=== PATIENT | female | born 1940 | race Caucasian/White ===

== ENCOUNTER 2021-06-07 11:05 | Emergency (ER) | payer MEDICARE ==
[2021-06-07 12:01] LABS: BASOPHIL 0.7 % (0-2); EOSINOPHIL 0 % (0-7); HCT 38.9 % (37.0-47.0); HGB 12.5 g/dl (12.5-16.0); LYMPHOCYTE 19.1 % (15-48); MCH 27.1 pg (25.0-31.0); MCHC 32.1 g/dL (32.0-36.0); MCV 84.2 fL (78.0-100.0); MONOCYTE 12.5 % (0-12); NEUTROPHIL 66.2 % (41-80); NRBC 0; PLT 38 K/uL (150-400); RBC 4.62 M/uL (4.20-5.40); RDW 14.6 % (11.5-14.0)
[2021-06-07 12:04] LABS: WBC 1.4 K/uL (4.0-10.5)
[2021-06-07 12:12] LABS: BILIRUBIN - TOTAL 0.8 mg/dL (0.2-1.0); BUN/CREAT RATIO (CALC) 17.6 RATIO; CREATININE 0.91 mg/dL (0.51-0.95); GLOBULIN (CALCULATION) 3.5 g/dL; POTASSIUM 4.4 mmol/L (3.5-5.1); TOTAL PROTEIN 6.5 g/dL (6.4-8.2)
[2021-06-07 12:40] LABS: BILIRUBIN 1+ mg/dL (NEGATIVE); BLOOD 3+ Ery/uL (NEGATIVE); CLARITY CLEAR (CLEAR); COLOR YELLOW (YELLOW); GLUCOSE (U) NORMAL (NORMAL); LEUKOCYTES NEGATIVE Leu/uL (NEGATIVE); NITRITE NEGATIVE (NEGATIVE); PROTEIN 3+ mg/dL (NEGATIVE); SPECIFIC GRAVITY 1.025 (1.001-1.030); UROBILINOGEN 0.2 mg/dL (0.2-1.0)
[2021-06-07 12:46] LABS: INR 1.42 (0.9-1.2); PROTHROMBIN TIME 16.6 SECONDS (11.8-13.4); PTT 37.2 SECONDS (24.4-34.7)
[2021-06-07 12:48] LABS: D-DIMER 1.34 ug/mLFEU (0.00-0.41)
[2021-06-07 13:04] LABS: BACTERIA TRACE
[2021-06-07] MEDS ORDERED: PREDNISONE 20MG20 MG PO (17:43)
[2021-06-07] MEDS ORDERED: VIBRAMYCIN100 MG PO (17:43)
== END 2021-06-07 18:01 | disposition home or self-care (01) ==
LOC: FER 11:05
PROVIDERS: Emergency Medicine
DX: U07.1 COVID-19 (principal); J12.82 Pneumonia due to coronavirus disease 2019; J44.9 Chronic obstructive pulmonary disease, unspecified; E11.9 Type 2 diabetes mellitus without complications; I10 Essential (primary) hypertension; Z23 Encounter for immunization; Z88.0 Allergy status to penicillin; Z88.2 Allergy status to sulfonamides; Z88.6 Allergy status to analgesic agent; Z88.1 Allergy status to other antibiotic agents; Z87.891 Personal history of nicotine dependence
CPT/HCPCS: 36415; 36600; 71045; 71275; 80053; 81001; 82803; 83880; 84484; 85025; 85379; 85610; 85730; 87088; 93005; J1200; J7040; M0243; Q0244; Q9967

== ENCOUNTER 2021-06-13 17:10 | Emergency (ER) | payer MEDICARE ==
[~2021-06-13 17:10] MED LIST: PREDNISONE 20MG20 MG PO; VIBRAMYCIN100 MG PO
[2021-06-13 18:43] LABS: BASOPHIL 0.5 % (0-2); EOSINOPHIL 1.4 % (0-7); HGB 12.3 g/dl (12.5-16.0); LYMPHOCYTE 14.6 % (15-48); MCH 27.4 pg (25.0-31.0); MCHC 32.4 g/dL (32.0-36.0); MCV 84.6 fL (78.0-100.0); MPV 12.3 fL (6.0-9.5); NEUTROPHIL 71.6 % (41-80); NRBC 0; RBC 4.49 M/uL (4.20-5.40); RDW 14.6 % (11.5-14.0)
[2021-06-13 18:50] LABS: PLT 69 K/uL (150-400); WBC 2.2 K/uL (4.0-10.5)
== END 2021-06-13 20:17 | disposition home or self-care (01) ==
LOC: FER 17:10
PROVIDERS: Emergency Medicine
DX: U07.1 COVID-19 (principal); Z88.1 Allergy status to other antibiotic agents; Z88.0 Allergy status to penicillin; Z88.2 Allergy status to sulfonamides
CPT/HCPCS: 36415; 84145; 85025; 99284

== ENCOUNTER 2022-03-11 16:18 | Emergency (ER) | payer MEDICARE ==
[2022-03-11 22:05] LABS: BASOPHIL 0.5 % (0-2); EOSINOPHIL 5.5 % (0-7); HCT 31.6 % (37.0-47.0); HGB 9.6 g/dl (12.5-16.0); MCH 24.7 pg (25.0-31.0); MCHC 30.4 g/dL (32.0-36.0); MCV 81.4 fL (78.0-100.0); MPV 11.7 fL (6.0-9.5); NRBC 0; PLT 78 K/uL (150-400); RBC 3.88 M/uL (4.20-5.40); RDW 18.5 % (11.5-14.0)
[2022-03-11 22:27] LABS: ALBUMIN 3.4 g/dL (3.4-5.0); BILIRUBIN - TOTAL 1.2 mg/dL (0.2-1.0); BUN/CREAT RATIO (CALC) 12.5 RATIO; CREATININE 0.8 mg/dL (0.51-0.95); GLOBULIN (CALCULATION) 3.2 g/dL; POTASSIUM 3.4 mmol/L (3.5-5.1); TOTAL PROTEIN 6.6 g/dL (6.4-8.2)
[2022-03-11 22:54] LABS: CORONAVIRUS 2019 SARS-COV-2 NEGATIVE (NEGATIVE); INFLUENZA A NAA NEGATIVE (NEGATIVE)
[2022-03-11] MEDS ORDERED: DIAZEPAM 5MG TAB5 MG PO (23:27)
== END 2022-03-11 23:40 | disposition home or self-care (01) ==
LOC: FER 16:18
PROVIDERS: Internal Medicine
DX: M62.830 Muscle spasm of back (principal); D61.818 Other pancytopenia; E11.9 Type 2 diabetes mellitus without complications; Z20.822 Contact with and (suspected) exposure to COVID-19; Z28.310 Unvaccinated for COVID-19; Z87.891 Personal history of nicotine dependence; Z88.1 Allergy status to other antibiotic agents; Z88.0 Allergy status to penicillin; Z88.2 Allergy status to sulfonamides; Z88.6 Allergy status to analgesic agent
CPT/HCPCS: 36415; 71045; 80053; 83880; 84145; 84484; 85025; 93005; U0002